=== PATIENT | female | born 1965 | race Caucasian/White ===

== ENCOUNTER 2018-02-07 10:31 | Inpatient (IN) | payer MEDICAID ==
[2018-02-07] MEDS: IV NORMAL SALINE 1000ML BAG 1,000 ML IV (10:37)
[2018-02-07 11:02] LABS: BILIRUBIN,URINE NEGATIVE (NEG); CLARITY,URINE CLEAR; COLOR,URINE YELLOW; GLUCOSE,URINE NEGATIVE (NEG); NITRITE,URINE NEGATIVE (NEG); PH,URINE 5.5; PROTEIN,URINE NEGATIVE (NEG-TRACE); UROBILINOGEN,URINE 0.2 mg/dL (0.2 mg/dL)
[2018-02-07] MEDS ORDERED: NALOXONE 0.4 MG/ML VIAL. (11:03)
[2018-02-07 11:05] LABS: POC GLUCOSE 85 mg/dL (70-99)
[2018-02-07 11:08] LABS: ADD MAN DIFF? NO; BARBITURATES NEG (NEG); BENZODIAZEPINES NEG (NEG); CANNABINOIDS NEG (NEG); COCAINE NEG (NEG); METHADONE NEG (NEG); OPIATES NEG (NEG); PHENCYCLIDINE NEG (NEG)
[2018-02-07] MEDS: NALOXONE 0.4 MG/ML VIAL. IV ×2 (11:14→11:23)
[2018-02-07 11:15] LABS: BASO % 1 % (0-3); EOS # 0.1 x10^3/uL (0.0-0.7); EOS % 3 % (0-3); HEMATOCRIT 37.6 % (36.0-47.0); HEMOGLOBIN 12.8 g/dL (12.0-15.5); LYMPH % 35 % (24-48); MEAN CORPUSCULAR HEMOGLOBIN 27 pg (25-35); MEAN CORPUSCULAR HGB CONC 34 g/dL (31-37); MEAN CORPUSCULAR VOLUME 80 fL (79-100); MONO # 0.5 x10^3/uL (0.0-1.1); MONO % 9 % (0-9); NEUT % 53 % (31-73); PLATELET COUNT 200 x10^3/uL (140-400); RED BLOOD COUNT 4.69 x10^6/uL (3.50-5.40); RED CELL DISTRIBUTION WIDTH 13.7 % (11.5-14.5); WHITE BLOOD COUNT 5.8 x10^3/uL (4.0-11.0)
[2018-02-07 11:17] LABS: AMPHETAMINE/METHAMPHETAMINE NEG (NEG); ETHANOL, URINE NEG (NEG)
[2018-02-07 11:18] LABS: BACTERIA,URINE FEW /HPF (0-FEW); RBC,URINE RARE /HPF (0-2); SQUAMOUS EPITHELIAL CELL,UR FEW /LPF
[2018-02-07 11:19] LABS: INR 1.1 (0.8-1.1); PROTHROMBIN TIME PATIENT 13.8 SEC (11.7-14.0)
[2018-02-07 11:29] LABS: ANION GAP 9 (6-14); BLOOD UREA NITROGEN 8 mg/dL (7-20); BUN/CREATININE RATIO 13 (6-20); CALCIUM 9.3 mg/dL (8.5-10.1); CARBON DIOXIDE 26 mmol/L (21-32); CHLORIDE 107 mmol/L (98-107); CREATININE 0.6 mg/dL (0.6-1.0); GFR 105.4; GLUCOSE 102 mg/dL (70-99); POTASSIUM 3.5 mmol/L (3.5-5.1); SODIUM 142 mmol/L (136-145)
[2018-02-07 11:31] LABS: ACETAMIN < 2 mcg/ml (10-30); ETHANOL < 10 mg/dL (0-10); SALIC 5.1 mg/dL (2.8-20.0)
[2018-02-07 11:32] LABS: ALBUMIN/GLOBULIN RATIO 1.1 (1.0-1.7); ALK PHOS 82 U/L (46-116); ALT (SGPT) 22 U/L (14-59); AST (SGOT) 17 U/L (15-37); MAGNESIUM 1.9 mg/dL (1.8-2.4); TOTAL BILIRUBIN 0.3 mg/dL (0.2-1.0); TOTAL PROTEIN 7.6 g/dL (6.4-8.2)
[2018-02-07] MEDS ORDERED: ONDANSETRON ODT 4 MG TAB.RAPDIS. PO (13:30)
[2018-02-07] MEDS ORDERED: ONDANSETRON PF 4 MG/2 ML VIAL. IV (13:30)
[2018-02-07] MEDS ORDERED: ACETAMINOPHEN 500 MG TABLET PO (13:30)
[2018-02-07] MEDS ORDERED: IBUPROFEN 400 MG TABLET. PO (13:30)
[2018-02-07] MEDS: NICOTINE 21MG PATCH. TD (16:01)
[2018-02-07] MEDS: KETOROLAC 30 MG/ML INJ. IV (18:28)
[2018-02-08] MEDS: KETOROLAC 30 MG/ML INJ. IV ×3 (04:48→21:44)
[2018-02-08] MEDS: HALOPERIDOL LACTATE 5 MG/ML VIAL. IVP (04:54)
[2018-02-08] MEDS: clonazePAM 0.5 MG TABLET PO ×2 (08:24→20:15)
[2018-02-08] MEDS: GADOBUTROL 7.5 MMOL/7.5 ML VIAL IV (15:48)
[2018-02-08] MEDS: NICOTINE 21MG PATCH. TD (17:02)
[2018-02-08] MEDS: amLODIPine BESYLATE 10 MG TABLET PO (18:00)
[2018-02-08] MEDS: QUEtiapine 100 MG TABLET. PO ×2 (21:30→21:43)
[2018-02-08] MEDS: GABAPENTIN 300 MG CAPSULE. PO (21:43)
[2018-02-09] MEDS: clonazePAM 0.5 MG TABLET PO ×2 (08:05→21:08)
[2018-02-09] MEDS: GABAPENTIN 300 MG CAPSULE. PO ×3 (08:05→21:08)
[2018-02-09] MEDS: FLUoxetine HCL 20 MG CAPSULE PO (08:06)
[2018-02-09] MEDS: QUEtiapine 100 MG TABLET. PO (08:07)
[2018-02-09] MEDS: KETOROLAC 30 MG/ML INJ. IV ×3 (08:10→22:55)
[2018-02-09] MEDS: amLODIPine BESYLATE 10 MG TABLET PO (08:11)
[2018-02-10] MEDS: QUEtiapine 100 MG TABLET. PO ×2 (00:02→09:13)
[2018-02-10] MEDS: clonazePAM 0.5 MG TABLET PO (09:12)
[2018-02-10] MEDS: FLUoxetine HCL 20 MG CAPSULE PO (09:12)
[2018-02-10] MEDS: GABAPENTIN 300 MG CAPSULE. PO ×2 (09:12→14:47)
[2018-02-10] MEDS: amLODIPine BESYLATE 10 MG TABLET PO (09:14)
[2018-02-10] MEDS: oxyCODONE/APAP 5/325 1 TAB TABLET PO (13:00)
== END 2018-02-10 17:16 | disposition home or self-care (01) | DRG 71 ==
LOC: ER 10:31 → 6 SOUTH 12:30
DX: G93.41 Metabolic encephalopathy (principal); F23 Brief psychotic disorder; F41.9 Anxiety disorder, unspecified; F32.9 Major depressive disorder, single episode, unspecified; G89.29 Other chronic pain; Z90.710 Acquired absence of both cervix and uterus; Z88.8 Allergy status to other drugs, medicaments and biological substances; Z59.0 Homelessness; Z86.73 Personal history of transient ischemic attack (TIA), and cerebral infarction without residual deficits
CPT/HCPCS: 36415; 70450; 70553; 71045; 80053; 80307; 80329; 81001; 82962; 83735; 85025; 85610; 93005; 95816; 96361; 96374; 99285; 99285-25; A9585; G0480; G6039; J1630; J1885; J2310; J7030